=== PATIENT | male | born 1965 ===

== ENCOUNTER 2017-11-27 12:55 | Inpatient (IN) | payer OTHER ==
[~2017-11-27] VITALS: Ht 180.3 cm; Wt 88.5 kg
[2017-11-27] MEDS ORDERED: CIPRO500 MG (13:24)
[2017-11-27] MEDS ORDERED: DICY20TA (13:24)
[2017-11-27] MEDS ORDERED: COLACE100 MG (13:25)
[2017-11-27] MEDS ORDERED: OMEGA 3 1,0001 EACH (15:52)
[2017-11-27] MEDS ORDERED: DIOVAN40 MG (15:52)
[2017-11-27] MEDS ORDERED: HYDROCHLOROTHIA25 MG (15:54)
[2017-11-27] MEDS ORDERED: VITRON-C TABLE1 EACH (15:54)
[2017-11-27] MEDS ORDERED: ALLOPURINOL300 MG (15:54)
== END 2017-12-10 14:27 | disposition home or self-care (01) | DRG 391 ==
LOC: ER 12:55 → MEDI 22:40 → SEC-K 22:40 → MEDI 22:52
PROC: BW25YZZ Computerized Tomography (CT Scan) of Chest, Abdomen and Pelvis using Other Contrast (ICD-10-PCS; 2017-11-27)
PROC: 3E0F7GC Introduction of Other Therapeutic Substance into Respiratory Tract, Via Natural or Artificial Opening (ICD-10-PCS; principal; 2017-12-02)
PROC: 4A033R1 Measurement of Arterial Saturation, Peripheral, Percutaneous Approach (ICD-10-PCS; 2017-12-03)
PROC: B246ZZZ Ultrasonography of Right and Left Heart (ICD-10-PCS; 2017-12-03)
PROC: BW40ZZZ Ultrasonography of Abdomen (ICD-10-PCS; 2017-12-06)
DX: K57.32 Diverticulitis of large intestine without perforation or abscess without bleeding (principal); K85.20 Alcohol induced acute pancreatitis without necrosis or infection; K56.0 Paralytic ileus; F10.231 Alcohol dependence with withdrawal delirium; E86.0 Dehydration; I10 Essential (primary) hypertension; Z78.1 Physical restraint status